=== PATIENT | female | born 1970 | race American Indian/Alaskan Native ===

== ENCOUNTER 2018-09-06 05:06 | Emergency (ER) | payer MEDICARE ==
--- NOTE | 2018-09-06 06:09 | Emergency Department Report ---
ED ENT HPI - General Chief complaint: Dental/Oral Stated complaint: TOOTHACHE Time Seen by Provider: 09/06/18 06:02 Source: patient Mode of arrival: Ambulatory Limitations: No Limitations - History of Present Illness Initial comments: 48-year-old -[place] female presents to the emergency room for right side upper tooth pain that started on Friday. Patient reports that the pain has progressively gotten worse to where it the pain as a 10 out of 10. Patient reports that she was eating potato chips when she bit down in her tooth had broken. Patient denies any fever or chills. MD complaint: tooth pain -: days(s) (6) Location: tooth # (6) Severity: severe Severity scale (0 -10): 10 Quality: aching, sharp Consistency: constant Improves with: none Worsens with: eating Context- Dental: other (broken tooth) Associated Symptoms: toothache - Related Data Previous Rx's Medication Instructions Recorded Last Taken Type Amoxicillin 500 mg PO TID #30 capsule 09/06/18 Unknown Rx Ibuprofen [Ibu] 600 mg PO Q8H PRN #30 tablet 09/06/18 Unknown Rx traMADol [Ultram 50 MG tab] 50 mg PO Q6HR PRN #12 tablet 09/06/18 Unknown Rx Allergies Allergy/AdvReac Type Severity Reaction Status Date / Time No Known Allergies Allergy Unverified 09/06/18 05:31 ED Dental HPI - General Chief complaint: Dental/Oral Stated complaint: TOOTHACHE Time Seen by Provider: 09/06/18 06:02 Source: patient Mode of arrival: Ambulatory Limitations: No Limitations - Related Data Previous Rx's Medication Instructions Recorded Last Taken Type Amoxicillin 500 mg PO TID #30 capsule 09/06/18 Unknown Rx Ibuprofen [Ibu] 600 mg PO Q8H PRN #30 tablet 09/06/18 Unknown Rx traMADol [Ultram 50 MG tab] 50 mg PO Q6HR PRN #12 tablet 09/06/18 Unknown Rx Allergies Allergy/AdvReac Type Severity Reaction Status Date / Time No Known Allergies Allergy Unverified 09/06/18 05:31 ED Review of Systems ROS: Stated complaint: TOOTHACHE Other details as noted in HPI Comment: All other systems reviewed and negative ENT: dental pain ED Past Medical Hx - Past Medical History Previous Medical History?: Yes Additional medical history: Right eye Macular hole, Narcolepsy, Herniated Disc, Scoliosis - Surgical History Past Surgical History?: Yes Additional Surgical History: Hysterectomy - Social History Smoking Status: Never Smoker - Medications Home Medications: Home Medications Medication Instructions Recorded Confirmed Last Taken Type Amoxicillin 500 mg PO TID #30 capsule 09/06/18 Unknown Rx Ibuprofen [Ibu] 600 mg PO Q8H PRN #30 tablet 09/06/18 Unknown Rx traMADol [Ultram 50 MG tab] 50 mg PO Q6HR PRN #12 tablet 09/06/18 Unknown Rx ED Physical Exam - General Limitations: No Limitations General appearance: alert, in no apparent distress - Head Head exam: Present: atraumatic, normocephalic - Eye Eye exam: Present: EOMI - Expanded ENT Exam Expanded Teeth exam: Present: fractured tooth # (6), dental tenderness # (6) - Neck Neck exam: Present: normal inspection, full ROM - Neurological Exam Neurological exam: Present: alert, oriented X3 - Psychiatric Psychiatric exam: Present: normal affect, normal mood - Skin Skin exam: Present: warm, dry, intact, normal color. Absent: rash ED Course Vital Signs 09/06/18 09/06/18 05:11 05:34 Temperature 97.9 F 97.9 F Pulse Rate 77 81 Respiratory 18 18 Rate Blood Pressure 144/84 144/84 O2 Sat by Pulse 99 99 Oximetry Critical care attestation.: If time is entered above; I have spent that time in minutes in the direct care of this critically ill patient, excluding procedure time. ED Disposition Clinical Impression: Pain, dental Broken tooth Qualifiers: Encounter type: initial encounter Fracture type: open Qualified Code(s): S02.5XXB - Fracture of tooth (traumatic), initial encounter for open fracture Disposition: - TO HOME OR SELFCARE Is pt being admited?: No Does the pt Need Aspirin: No Condition: Stable Instructions: Dental Abscess (ED), Acute dental trauma (ED), Toothache (ED) Additional Instructions: Please complete antibiotics as prescribed. Pain medication as needed. Follow up with the dentist I have listed several below for your convenience. Prescriptions: Amoxicillin 500 mg PO TID #30 capsule Ibuprofen [Ibu] 600 mg PO Q8H PRN #30 tablet PRN Reason: Pain , Severe (7-10) traMADol [Ultram 50 MG tab] 50 mg PO Q6HR PRN #12 tablet PRN Reason: Pain Referrals: ELIANA ADAMSON MD [Primary Care Provider] - 3-5 Days [facility] [Outside] - 3-5 Days [facility] [Outside] - 3-5 Days Forms: Work/School Release Form(ED)
== END 2018-09-06 06:46 | disposition home or self-care (01) ==
LOC: ED 05:06
CPT/HCPCS: 99282

== ENCOUNTER 2019-04-26 07:12 | Emergency (ER) | payer MEDICAID, MEDICARE ==
--- NOTE | 2019-04-26 09:03 | Emergency Department Report ---
Minor Respiratory - HPI Chief Complaint: Upper Respiratory Infection Stated Complaint: COUGH/VOMITING Time Seen by Provider: 04/26/19 07:57 Duration: 1 week Pain Location: Nose Severity: moderate Minor Respiratory: Yes Rhinorrhea, Yes Able to Tolerate Fluids, Yes Cough, Yes Sick Contacts, Yes Fever, No Sore Throat, No Ear Pain, No Hemoptysis, No Chest Pain, No Shortness of Breath Other History: This is a 49-year-old -[place] female who presents to the emergency room with cough and congestion for 1 week. Past medical history of asthma, narcolepsy, herniated disc, and scoliosis. Patient states she is using an albuterol inhaler more than normal, at least 2 times a week. She also reports chills and nausea. Patient states she was seen by a doctor at her job who told her she may have pneumonia. Patient states she is using cold and sinus medication with no improvement of symptoms. She reports cough is worse when she lay down at night. She denies palpitations, chest pain, shortness of breath, diarrhea, abdominal pain, coryza, and sore throat. ED Review of Systems ROS: Stated complaint: COUGH/VOMITING Other details as noted in HPI Constitutional: chills. denies: fever ENT: congestion. denies: ear pain, throat pain Respiratory: cough. denies: shortness of breath, wheezing Cardiovascular: denies: chest pain, palpitations Gastrointestinal: denies: abdominal pain, nausea, diarrhea Musculoskeletal: denies: back pain, joint swelling, arthralgia Skin: denies: rash, lesions Neurological: denies: headache, weakness, paresthesias Psychiatric: denies: anxiety, depression ED Past Medical Hx - Past Medical History Previous Medical History?: Yes Hx Asthma: Yes Additional medical history: Right eye macular hole, Narcolepsy, Herniated Disc, Scoliosis - Surgical History Past Surgical History?: Yes Additional Surgical History: Hysterectomy - Social History Smoking Status: Never Smoker - Medications Home Medications: Home Medications Medication Instructions Recorded Confirmed Last Taken Type Amoxicillin 500 mg PO TID #30 capsule 09/06/18 Unknown Rx Ibuprofen [Ibu] 600 mg PO Q8H PRN #30 tablet 09/06/18 Unknown Rx traMADol [Ultram 50 MG tab] 50 mg PO Q6HR PRN #12 tablet 09/06/18 Unknown Rx Azithromycin [Zithromax Z-JUN] 250 mg PO DAILY #6 tablet 04/26/19 Unknown Rx Benzonatate [Tessalon Perles] 100 mg PO Q8HR PRN #30 capsule 04/26/19 Unknown Rx Prednisone [predniSONE 10 mg 10 mg PO .TAPER #1 tab.ds.pk 04/26/19 Unknown Rx (6-Day Pack, 21 Tabs)] Minor Respiratory Exam - Exam General: Vital signs noted. No distress. Alert and acting appropriately. HEENT: Yes Pharyngeal Erythema (erythematous posterior pharynx, uvula midline), Yes Moist Mucous Membranes, Yes Rhinorrhea (turbinate is congested with clear discharge), No Pharyngeal Exudates, No Conjuctival Injection, No Frontal Tenderness, No Maxillary Tenderness Ear: Neither TM Bulge, Neither TM Erythema, Neither EAC Pain, Neither EAC Discharge Neck: Yes Supple, No Adenopathy Lungs: Yes Good Air Exchange, No Wheezes, No Ronchi, No Stridor, No Cough, No Labored Respirations, No Retractions, No Use of Accessory Muscles, No Other Abnormal Lung Sounds Heart: Yes Regular, No Murmur Abdomen: Yes Normal Bowel Sounds, No Tenderness, No Peritoneal Signs Skin: No Rash, No Edema Neurologic: Alert and oriented, no deficits. Musculoskeletal: Unremarkable. ED Course Vital Signs 04/26/19 07:21 Temperature 98.4 F Pulse Rate 85 Respiratory 22 Rate Blood Pressure 150/82 [Right] O2 Sat by Pulse 99 Oximetry ED Medical Decision Making - Radiology Data Radiology results: report reviewed CHEST 2 VIEWS INDICATION: cough, r/o pneumonia. COMPARISON: None FINDINGS: Support devices: None. Heart: Within normal limits. Lungs/pleura: There is a subtle area of airspace opacity lateral to the right hilum which could represent segmental atelectasis or early infiltrate. No large consolidation or pleural fluid. No underlying parenchymal lung disease is appreciated. No pneumothorax. Additional findings: None. IMPRESSION: Questionable subtle right upper lobe opacity. Segmental atelectasis versus early pneumonia. Please correlate with the clinical presentation of the patient. - Medical Decision Making Patient is stable and was examined by me. Past medical history of asthma, narcolepsy, herniated disc, and scoliosis. Chest xray has been obtained and dictated by radiologist. Questionable subtle right upper lobe opacity. Segmental atelectasis versus early pneumonia. Please correlate with the clinical presentation of the patient. Given Tessalon Perles in ER once. Patient does not seem toxic or ill in appearance. No acute signs of distress noted. Start azithromycin, benzonatate, prednisone Dosepak. Patient will be treated for pneumonia and given steroids for asthma. Continue using albuterol inhaler. No further questions noted. Discharged home stable. Follow up with PCP in 24-48 hours. Critical care attestation.: If time is entered above; I have spent that time in minutes in the direct care of this critically ill patient, excluding procedure time. ED Disposition Clinical Impression: Cough in adult Pneumonia Qualifiers: Pneumonia type: due to unspecified organism Laterality: right Lung location: upper lobe of lung Qualified Code(s): J18.1 - Lobar pneumonia, unspecified organism Disposition: TO HOME OR SELFCARE Is pt being admited?: No Does the pt Need Aspirin: No Condition: Stable Instructions: Community-acquired Pneumonia (ED) Additional Instructions: Complete full course of medication as prescribed. Follow up with your primary care doctor in 48-72 hours. Increase fluids to prevent dehydration. Return to work in 2-3 days. Prescriptions: Prednisone [predniSONE 10 mg (6-Day Pack, 21 Tabs)] 10 mg PO .TAPER #1 tab.ds.pk Benzonatate [Tessalon Perles] 100 mg PO Q8HR PRN #30 capsule PRN Reason: Cough Azithromycin [Zithromax Z-JUN] 250 mg PO DAILY #6 tablet Referrals: [facility], [facility] [Provider Group] - 3-5 Days [facility] [Provider Group] - 3-5 Days [facility] [Provider Group] - 3-5 Days EFREN TAVERAS MD [Staff Physician] - 3-5 Days Forms: Work/School Release Form(ED) Time of Disposition: 10:23
--- NOTE | 2019-04-26 10:06 | XRay Report ---
CHEST 2 VIEWS INDICATION: cough, r/o pneumonia. COMPARISON: None FINDINGS: Support devices: None. Heart: Within normal limits. Lungs/pleura: There is a subtle area of airspace opacity lateral to the right hilum which could repre sent segmental atelectasis or early infiltrate. No large consolidation or pleural fluid. No underlyin g parenchymal lung disease is appreciated. No pneumothorax. Additional findings: None. IMPRESSION: Questionable subtle right upper lobe opacity. Segmental atelectasis versus early pneumonia. Please co rrelate with the clinical presentation of the patient. Signer Name: Servando Marie Jr, MD Signed: 04/26/2019 10:02 AM Workstation Name: [id number]
[2019-04-26] MEDS ORDERED: TESSALON PERLES PO ONE (10:15)
[2019-04-26 10:32] VITALS: BP 150/80
== END 2019-04-26 10:31 | disposition home or self-care (01) ==
LOC: ED 07:12
DX: J18.1 Lobar pneumonia, unspecified organism (principal); J45.909 Unspecified asthma, uncomplicated; Z90.710 Acquired absence of both cervix and uterus; Z79.899 Other long term (current) drug therapy; Z79.1 Long term (current) use of non-steroidal anti-inflammatories (NSAID)
CPT/HCPCS: 71046; 99283